=== PATIENT | female | born 1990 | race Caucasian/White ===

== ENCOUNTER 2016-12-29 08:40 | Emergency (ER) | payer OTHER ==
[~2016-12-29] VITALS: Ht 170.2 cm; Wt 71.0 kg
[~2016-12-29 08:40] MED LIST: AMOX125S8 PO
[2016-12-29] MEDS ORDERED: KETOROLAC 60MG/2ML VIAL IM ONE (09:30)
[2016-12-29 09:48] LABS: CLARITY URINE CLEAR (CLEAR); COLOR URINE YELLOW (YELLOW); GLUCOSE URINE NEGATIVE (NEGATIVE); KETONES URINE NEGATIVE (NEGATIVE); LEUKOCYTE ESTERASE URINE NEGATIVE (NEGATIVE); NITRITE URINE NEGATIVE (NEGATIVE); OCCULT BLOOD URINE NEGATIVE (NEGATIVE); PH URINE 7.5 (4.5-8.0); PROTEIN URINE NEGATIVE (NEGATIVE); SPECIFIC GRAVITY URINE 1.006 (1.005-1.030); UROBILINOGEN URINE 0.2 E.U./dL (0.2-1.0)
[2016-12-29] MEDS ORDERED: TRAMADOL 50MG TABLET PO ONE (10:00)
[2016-12-29 11:00] VITALS: BP 122/80
== END 2016-12-29 11:57 | disposition home or self-care (01) ==
LOC: ER 08:40
DX: R51 Headache (principal)
CPT/HCPCS: 81003; 81025; 96372; 99283; J1885